=== PATIENT | female | born 1975 | race American Indian/Alaskan Native ===

== ENCOUNTER 2020-06-08 10:55 | Emergency (ER) | payer SELFPAY ==
[2020-06-08 11:15] VITALS: BP 123/68
--- NOTE | 2020-06-08 11:41 | Event Note ---
ED Screening Note ED Screening Note: 45-year-old F [place] female with history of anemia presents to the emergency department complaining of having increased vaginal bleeding with a regular menstrual cycles been lasting for almost a month with heavy clots. Reports no chest pain or palpitations. No nausea vomiting. Pain is crampy in nature. This initial assessment/diagnostic orders/clinical plan/treatment(s) is/are subject to change based on patients health status, clinical progression and re- assessment by fellow clinical providers in the ED. Further treatment and workup at subsequent clinical providers discretion. Patient/guardian urged not to elope from the ED as their condition may be serious if not clinically assessed and managed. Initial orders include: us
[2020-06-08 12:32] LABS: HCG Qualitative,Urine Negative (Negative)
[2020-06-08 12:36] LABS: Bacteria,Urine 1+ /HPF (Negative); Bilirubin,Urine NEG (Negative); Blood,Urine LG (Negative); Color,Urine Red (Yellow); Mucus,Urine 1+ /HPF; Urobilinogen,Urine < 2.0 mg/dL (<2.0)
[2020-06-08 12:49] LABS: RBC,Urine > 182.0 /HPF (0.0-6.0)
--- NOTE | 2020-06-08 14:04 | Ultrasound Report ---
US transvaginal, US pelvic complete INDICATION / CLINICAL INFORMATION: heavy and prolonged vaginal bleeding. TECHNIQUE: Transabdominal and Transvaginal. Duplex Color Doppler used: Yes. COMPARISON: None available FINDINGS: UTERUS: Measures 10.6 cm cm. -Endometrial stripe measures 1.6 cm. - Mass lesions: There are 4 small fibroids measuring up to 2.2 cm. RIGHT ADNEXA: No significant ovarian cyst or mass. Normal color Doppler blood flow. LEFT ADNEXA: Small left ovarian cyst most certainly benign in etiology. Normal color Doppler blood fl ow. URINARY BLADDER: No significant abnormality. FREE FLUID: None. ADDITIONAL FINDINGS: None. IMPRESSION: 1. The endometrial stripe is mildly thickened measuring 16 mm. 2. Multiple small uterine lesions most consistent with fibroids. Signer Name: Chalino Maciel MD Signed: 06/08/2020 1:59 PM Workstation Name: [id number]
[2020-06-08 15:17] LABS: Basophils # (Auto) 0.1 K/mm3 (0.0-0.1); Basophils % (Auto) 0.7 % (0.0-1.8); Eosinophils # (Auto) 0.1 K/mm3 (0.0-0.4); Eosinophils % (Auto) 1.5 % (0.0-4.3); Hemoglobin 8.6 gm/dl (10.1-14.3); Lymphocytes # (Auto) 1.5 K/mm3 (1.2-5.4); Lymphocytes % (Auto) 15.4 % (13.4-35.0); Mean Corpuscular HGB Conc 31 % (30-34); Mean Corpuscular Volume 71 fl (79-97); Monocytes # (Auto) 0.4 K/mm3 (0.0-0.8); Monocytes % (Auto) 4.2 % (0.0-7.3); Platelet Count 246 K/mm3 (140-440); Red Blood Count 3.97 M/mm3 (3.65-5.03); Red Cell Distribution Width 19.5 % (13.2-15.2)
[2020-06-08 15:31] LABS: Alanine Aminotransferase 13 units/L (7-56); Albumin 3.9 g/dL (3.9-5); BUN/Creatinine Ratio 11; Blood Urea Nitrogen 8 mg/dL (7-17); Calcium 9.3 mg/dL (8.4-10.2); Hemolysis Index 0
--- NOTE | 2020-06-08 15:55 | Emergency Department Report ---
ED General Adult HPI - General Chief complaint: Vaginal Bleeding Stated complaint: HEAVY VAGINAL BLEEDING Time Seen by Provider: 06/08/20 14:47 Source: patient Mode of arrival: Ambulatory Limitations: No Limitations - History of Present Illness Initial comments: 45-year-old -[place] female patient presents with complaints of heavy vaginal bleeding x6 weeks. Patient does state history of anemia and heavy vaginal bleeding in the past. She reports that 6 months ago she had a similar episode and was placed on oral contraceptives and her bleeding has been controlled since. She reports that this episode of bleeding started once she ran out of her control. She also reports some lower abdominal pain and cramping, but denies any vaginal discharge, dyspareunia, fever/chills/sweats, urinary symptoms, or stool changes. She rates her pain as a 3/10 in severity. She denies any history of blood transfusions. - Related Data Previous Rx's Medication Instructions Recorded Last Taken Type Cyclobenzaprine HCl [Flexeril 5mg] 5 mg PO BID #14 tablet 03/05/14 Unknown Rx Naproxen [Naprosyn] 250 mg PO BID #14 tablet 03/05/14 Unknown Rx Norgestimate-Ethinyl Estradiol 1 each PO QDAY 28 Days #1 pack 06/08/20 Unknown Rx [Sprintec 28 Day Tablet] Sulfamethoxazole/Trimethoprim 1 each PO BID 5 Days #10 tablet 06/08/20 Unknown Rx [Bactrim DS TAB] Allergies Allergy/AdvReac Type Severity Reaction Status Date / Time No Known Allergies Allergy Verified 03/05/14 23:50 ED Review of Systems ROS: Stated complaint: HEAVY VAGINAL BLEEDING Other details as noted in HPI Constitutional: malaise. denies: chills, diaphoresis, fever Respiratory: denies: cough, shortness of breath Endocrine: denies: excessive sweating Gastrointestinal: abdominal pain. denies: nausea, vomiting, diarrhea, constipation, melena, hematochezia Genitourinary: abnormal menses. denies: urgency, dysuria, frequency, hematuria, discharge, dyspareunia Skin: denies: change in color Hematological/Lymphatic: denies: easy bleeding, easy bruising, swollen glands ED Past Medical Hx - Past Medical History Previous Medical History?: Yes Hx Hypertension: Yes - Surgical History Past Surgical History?: No Additional Surgical History: Tubal Ligation - Social History Smoking Status: Never Smoker Substance Use Type: Alcohol - Medications Home Medications: Home Medications Medication Instructions Recorded Confirmed Last Taken Type Cyclobenzaprine HCl [Flexeril 5mg] 5 mg PO BID #14 tablet 03/05/14 Unknown Rx Naproxen [Naprosyn] 250 mg PO BID #14 tablet 03/05/14 Unknown Rx Norgestimate-Ethinyl Estradiol 1 each PO QDAY 28 Days #1 pack 06/08/20 Unknown Rx [Sprintec 28 Day Tablet] Sulfamethoxazole/Trimethoprim 1 each PO BID 5 Days #10 tablet 06/08/20 Unknown Rx [Bactrim DS TAB] ED Physical Exam - General Limitations: No Limitations General appearance: alert, in no apparent distress - Head Head exam: Present: atraumatic, normocephalic - Eye Eye exam: Present: normal appearance - ENT ENT exam: Present: mucous membranes moist - Respiratory Respiratory exam: Present: normal lung sounds bilaterally. Absent: respiratory distress - Cardiovascular Cardiovascular Exam: Present: regular rate, normal rhythm - GI/Abdominal GI/Abdominal exam: Present: soft, normal bowel sounds. Absent: distended, tenderness, guarding, rebound, rigid - Extremities Exam Extremities exam: Present: full ROM - Back Exam Back exam: Present: normal inspection. Absent: CVA tenderness (R), CVA tenderness (L) - Neurological Exam Neurological exam: Present: alert, oriented X3 - Psychiatric Psychiatric exam: Present: normal affect, normal mood - Skin Skin exam: Present: warm, dry, intact, normal color. Absent: rash, cyanosis, diaphoretic ED Course Vital Signs 06/08/20 11:07 Temperature 98.1 F Pulse Rate 80 Blood Pressure 123/68 [Right] O2 Sat by Pulse 100 Oximetry ED Medical Decision Making - Lab Data Result diagrams: 06/08/20 14:58 06/08/20 14:58 Lab Results 06/08/20 06/08/20 06/08/20 Range/Units 14:58 14:58 Unknown WBC 9.8 (4.5-11.0) K/mm3 RBC 3.97 (3.65-5.03) M/mm3 Hgb 8.6 L (10.1-14.3) gm/dl Hct 28.0 L (30.3-42.9) % MCV 71 L (79-97) fl MCH 22 L (28-32) pg MCHC 31 (30-34) % RDW 19.5 H (13.2-15.2) % Plt Count 246 (140-440) K/mm3 Lymph % (Auto) 15.4 (13.4-35.0) % Dixon % (Auto) 4.2 (0.0-7.3) % Eos % (Auto) 1.5 (0.0-4.3) % Baso % (Auto) 0.7 (0.0-1.8) % Lymph # (Auto) 1.5 (1.2-5.4) K/mm3 Dixon # (Auto) 0.4 (0.0-0.8) K/mm3 Eos # (Auto) 0.1 (0.0-0.4) K/mm3 Baso # (Auto) 0.1 (0.0-0.1) K/mm3 Seg Neutrophils % 78.2 H (40.0-70.0) % Seg Neutrophils # 7.6 (1.8-7.7) K/mm3 Sodium 139 (137-145) mmol/L Potassium 4.7 (3.6-5.0) mmol/L Chloride 105.3 (98-107) mmol/L Carbon Dioxide 26 (22-30) mmol/L Anion Gap 12 mmol/L BUN 8 (7-17) mg/dL Creatinine 0.7 (0.6-1.2) mg/dL Estimated GFR > 60 ml/min BUN/Creatinine Ratio 11 % Glucose 102 H (65-100) mg/dL Calcium 9.3 (8.4-10.2) mg/dL Total Bilirubin 0.20 (0.1-1.2) mg/dL AST 16 (5-40) units/L ALT 13 (7-56) units/L Alkaline Phosphatase 67 (35-129) units/L Total Protein 6.6 (6.3-8.2) g/dL Albumin 3.9 (3.9-5) g/dL Albumin/Globulin Ratio 1.4 % Urine Color Red (Yellow) Urine Turbidity Cloudy (Clear) Urine pH 6.0 (5.0-7.0) Ur Specific [place] 1.019 (1.003-1.030) Urine Protein 100 mg/dl (Negative) mg/dL Urine Glucose (UA) Neg (Negative) mg/dL Urine Ketones Neg (Negative) mg/dL Urine Blood Lg (Negative) Urine Nitrite Pos (Negative) Ur Reducing Substances Not Reportable Urine Bilirubin Neg (Negative) Urine Ictotest Not Reportable Urine Urobilinogen < 2.0 (<2.0) mg/dL Ur Leukocyte Esterase Tr (Negative) Urine WBC (Auto) 85.0 H (0.0-6.0) /HPF Urine RBC (Auto) > 182.0 (0.0-6.0) /HPF Urine Bacteria (Auto) 1+ (Negative) /HPF Urine Mucus 1+ /HPF Urine HCG, Qual Negative (Negative) - Radiology Data Radiology results: report reviewed US transvaginal, US pelvic complete INDICATION / CLINICAL INFORMATION: heavy and prolonged vaginal bleeding. TECHNIQUE: Transabdominal and Transvaginal. Duplex Color Doppler used: Yes. COMPARISON: None available FINDINGS: UTERUS: Measures 10.6 cm cm. -Endometrial stripe measures 1.6 cm. - Mass lesions: There are 4 small fibroids measuring up to 2.2 cm. RIGHT ADNEXA: No significant ovarian cyst or mass. Normal color Doppler blood flow. LEFT ADNEXA: Small left ovarian cyst most certainly benign in etiology. Normal color Doppler blood flow. URINARY BLADDER: No significant abnormality. FREE FLUID: None. ADDITIONAL FINDINGS: None. IMPRESSION: 1. The endometrial stripe is mildly thickened measuring 16 mm. 2. Multiple small uterine lesions most consistent with fibroids. - Medical Decision Making 45-year-old -[place] female patient presents with complaints of heavy vaginal bleeding x6 weeks. Patient does state history of anemia and heavy vaginal bleeding in the past. She reports that 6 months ago she had a similar episode and was placed on oral contraceptives and her bleeding has been controlled since. She reports that this episode of bleeding started once she ran out of her control. She also reports some lower abdominal pain and cramping, but denies any vaginal discharge, dyspareunia, fever/chills/sweats, urinary symptoms, or stool changes. She rates her pain as a 3/10 in severity. She denies any history of blood transfusions. Hemoglobin noted to be 8.6. UA shows 85 WBCs. Transvaginal ultrasound shows uterine fibroids. Her vitals are normal and she is well-appearing. Patient is stable for discharge home. Patient to restart OCPs. Bactrim given for UTI she denies being a smoker or history of DVT/PE/cancer. Recommend follow-up with [facility] within 3 to 5 days. Strict return precautions were discussed in detail with patient who verbalizes understanding. Critical care attestation.: If time is entered above; I have spent that time in minutes in the direct care of this critically ill patient, excluding procedure time. ED Disposition Clinical Impression: Dysmenorrhea Uterine fibroid Qualifiers: Uterine leiomyoma location: unspecified location Qualified Code(s): D25.9 - Leiomyoma of uterus, unspecified UTI (urinary tract infection) Qualifiers: Urinary tract infection type: acute cystitis Hematuria presence: without hematuria Qualified Code(s): N30.00 - Acute cystitis without hematuria Disposition: TO HOME OR SELFCARE Is pt being admited?: No Condition: Stable Instructions: Uterine Fibroids, Urinary Tract Infection, Adult, Dysfunctional Uterine Bleeding Prescriptions: Sulfamethoxazole/Trimethoprim [Bactrim DS TAB] 1 each PO BID 5 Days #10 tablet Norgestimate-Ethinyl Estradiol [Sprintec 28 Day Tablet] 1 each PO QDAY 28 Days #1 pack Referrals: [facility] [Provider Group] - 3-5 Days
== END 2020-06-08 16:15 | disposition home or self-care (01) ==
LOC: ED 10:55
DX: N39.0 Urinary tract infection, site not specified (principal); D25.9 Leiomyoma of uterus, unspecified; N94.6 Dysmenorrhea, unspecified; I10 Essential (primary) hypertension; Z79.899 Other long term (current) drug therapy; Z98.51 Tubal ligation status
CPT/HCPCS: 36415; 76830; 76856; 80053; 81001; 81025; 85025; 87086